=== PATIENT | female | born 1930 | race Two or more races ===

== ENCOUNTER → 2019-09-06 | Outpatient (CLI) | payer OTHER | END | disposition home or self-care (01) | LOC: MAMO-SONO 10:43 | DX: N63.11 Unspecified lump in the right breast, upper outer quadrant (principal); Z12.31 Encounter for screening mammogram for malignant neoplasm of breast ==

== ENCOUNTER 2020-01-01 06:00 | Day surgery (SDC) | payer OTHER | END 2020-01-01 12:40 | disposition home or self-care (01) | LOC: AMB-ENDOS 06:00 → CIR.AMB 12:30 → AMB-ENDOS 12:40 | PROVIDERS: ATTEND Surgery | DX: K62.89 Other specified diseases of anus and rectum (principal); K64.8 Other hemorrhoids ==